=== PATIENT | female | born 1995 | race African-American/Black ===

== ENCOUNTER 2016-07-31 15:38 | Emergency (ER) | payer BC ==
[2016-07-31] MEDS ORDERED: IPRATROPIUM-ALBUTEROL 3 ML NEB INHALATION STA (16:10)
--- NOTE | 2016-07-31 16:21 | ED ---
General Adult HPI - General Chief complaint: Upper Respiratory Infection Stated complaint: Cough Time Seen by Provider: 07/31/16 16:06 Source: patient, RN notes reviewed Mode of arrival: ambulatory Limitations: no limitations - History of Present Illness Initial comments: 20 yo female presents to the emergency department with a chief complaint of cough. Patient has a positive past week or so. Patient states that she's taken her ALLERGY medication but now she seems have wheezing continued. Patient denies fever. Pain or vomiting. Patient states she was concerned due to the wheezing that she should be.Patient denies any recent fever, chills, shortness of breath, chest pain, back pain, abdominal pain, nausea vomiting, numbness or tingling, dysuria or hematuria, constipation or diarrhea, headaches or visual changes, or any other current symptoms. - Related Data Previous Rx's Medication Instructions Recorded Albuterol Inhaler [Ventolin Hfa 1 - 2 puff INHALATION Q4-6H PRN #1 07/31/16 Inhaler] inhaler predniSONE 50 mg PO DAILY #5 tab 07/31/16 Allergies Allergy/AdvReac Type Severity Reaction Status Date / Time Sulfa (Sulfonamide Allergy Unknown Verified 07/31/16 16:05 Antibiotics) Review of Systems ROS Statement: Those systems with pertinent positive or pertinent negative responses have been documented in the HPI. ROS Other: All systems not noted in ROS Statement are negative. Past Medical History Past Medical History: No Reported History History of Any Multi-Drug Resistant Organisms: None Reported Past Surgical History: No Surgical Hx Reported Past Psychological History: Anxiety, Depression Smoking Status: Never smoker Past Alcohol Use History: None Reported Past Drug Use History: Marijuana General Exam - General Exam Comments Initial Comments: General exam: Alert, active, comfortable in no apparent distress Head: Normocephalic Eyes: Normal reaction of pupils, equal size, normal range of extraocular motion Ears: normal external ear canals, pink tympanic membranes with normal cone of light Nose: clear with pink turbinates Throat: no erythema or exudates with normal sized tonsils Neck: no masses, no nuchal rigidity Chest: no chest wall deformity Lungs: equal air entry with no crackles with expiratory wheeze CVS: S1 and S2 normal with no audible mumurs, regular rhythm Abdomen: no hepatosplenomegaly, normal bowel sounds, no guarding or rigidity Spine: no scoliosis or deformity Skin: no rashes Neurological: No focal deficits, tone is normal in all 4 extremities Limitations: no limitations Course Vital Signs 07/31/16 07/31/16 07/31/16 16:00 16:02 16:35 Temperature 99.4 F Pulse Rate 90 90 Respiratory 20 8 L Rate Blood Pressure 148/74 O2 Sat by Pulse 99 Oximetry 07/31/16 16:46 Temperature Pulse Rate 90 Respiratory Rate Blood Pressure O2 Sat by Pulse Oximetry - Reevaluation(s) Reevaluation #1: 07/31/16 16:51 Patient reassessed at this time has resolved. Medical Decision Making - Medical Decision Making 20-year-old presents with what appears to be a bronchitis. This and was started on steroids and an inhaler for home. We discussed follow-up return parameters. She isn't better after being judgment. We discussed all of her questions. She states that she is given the plan all questions have been answered. She will be discharged home. - Radiology Data Radiology results: report reviewed, image reviewed Disposition Clinical Impression: Acute bronchitis Disposition: HOME SELF-CARE Condition: Stable Instructions: Acute Bronchitis (ED) Additional Instructions: Please use medication as discussed. Please follow up with family doctor if symptoms have not improved over the next two days. Please return to the emergency room if your symptoms increase or worsen or for any other concerns. Prescriptions: Albuterol Inhaler [Ventolin Hfa Inhaler] 1 - 2 puff INHALATION Q4-6H PRN #1 inhaler PRN Reason: Cough predniSONE 50 mg PO DAILY #5 tab Referrals: Camryn Moore MD [STAFF PHYSICIAN] - 1-2 days Time of Disposition: 16:51
--- NOTE | 2016-07-31 16:32 | XR ---
EXAMINATION TYPE: XR chest 2V DATE OF EXAM: 07/31/2016 4:25 PM COMPARISON: None HISTORY: 20-year-old female with cough and congestion TECHNIQUE: Frontal and lateral views FINDINGS: The cardiomediastinal silhouette, aorta, and pulmonary vasculature are within normal limits. Very mil d peribronchial cuffing is noted. Otherwise, lungs and pleural spaces are clear. IMPRESSION: Very mild peribronchial cuffing. Correlate for bronchitis or chronic asthma.
[2016-07-31 17:03] VITALS: BP 130/68; PULSE 80; RESP 20; TEMP 99
== END 2016-07-31 17:01 | disposition home or self-care (01) ==
LOC: EC 15:38
DX: J20.9 Acute bronchitis, unspecified (principal); Z88.2 Allergy status to sulfonamides
CPT/HCPCS: 71020; 94640; 99283